=== PATIENT | male | born 1965 | race Caucasian/White ===

== ENCOUNTER 2016-05-20 05:35 | Inpatient (IN) | payer OTHER ==
[~2016-05-20] VITALS: Ht 182.9 cm; Wt 138.9 kg
[~2016-05-20 05:35] MED LIST: ATIVAN1 MG PO; BACTRIM,SEPT1 TABLET PO; CIPRO500 MG PO; CLINDAMYCIN HC300 MG PO; COLACE100 MG PO; CYMBALTA60 MG PO; DILAUDID2 MG PO; FENTANYL1 EAC1 TD; IRON325 M1 PO; KEFLEX500 MG PO; LEVAQUIN750 MG PO; LIDOCAINE20 MG/1 M5 PO; LYRICA100 MG PO; NAPROSYN500 MG PO; NORCO 7.5/321 TABLET PO; OXYCODONE HCL10 MG PO; OXYCODONE HCL15 MG PO; PEN-VEE K,VEET500 MG PO; PERCOCET 10/1 TABLET PO; PERCOCET 5/31 TABLET PO; PYRIDIUM200 MG PO; SOMA350 MG PO; TIZANIDINE HCL4 MG PO; ULTRAM50 MG PO; ZUBSOLV 8.6-2.1 EACH SL
[2016-05-20 06:03] VITALS: BP 133/87
[2016-05-20 11:12] VITALS: BP 104/79
[2016-05-20 11:30] VITALS: BP 130/84
[2016-05-20 15:45] VITALS: BP 139/87
[2016-05-20 19:45] VITALS: BP 150/94
[2016-05-21 03:24] VITALS: BP 160/90
[2016-05-21 05:49] LABS: MCV 87.1 FL (86-99)
[2016-05-21 06:10] LABS: ANION GAP 5 MEQ/L (2-14); CHLORIDE 101 MEQ/L (99-109); GFR ESTIMATE (CALCULATED) > 59 mL/min/; GLUCOSE 108 mg/dL (70-99); POTASSIUM 4.4 MEQ/L (3.7-5.4); SAMPLE HEMOLYSIS CHECK 0; SAMPLE ICTERIC CHECK 0; SAMPLE LIPEMIA CHECK 0; SODIUM 136 MEQ/L (136-147); UREA NITROGEN (BUN) 12 mg/dL (9-23)
[2016-05-21 08:27] VITALS: BP 170/50
[2016-05-21 12:25] VITALS: BP 140/70
[2016-05-21 16:43] VITALS: BP 150/90
[2016-05-21 23:24] VITALS: BP 137/85
[2016-05-22 06:22] LABS: HEMATOCRIT 39.5 % (38.0-50.0); MCV 87.2 FL (86-99)
[2016-05-22 08:14] VITALS: BP 140/95
[2016-05-22 08:19] VITALS: BP 131/80
[2016-05-22] MEDS ORDERED: BENADRYL25 MG PO (09:57)
[2016-05-22] MEDS ORDERED: OXYCODONE HCL5 MG PO (10:02)
[2016-05-22] MEDS ORDERED: METHOCARBAMOL750 MG PO (10:02)
[2016-05-22] MEDS ORDERED: XARELTO10 MG PO (10:02)
[2016-05-22] MEDS ORDERED: CELECOXIB200 MG PO (10:02)
[2016-05-22] MEDS ORDERED: OXYCONTIN10 MG PO (10:02)
== END 2016-05-22 14:44 | disposition home or self-care (01) | DRG 470 ==
LOC: 2SOUTH 05:35 → 3EAST 05:35 → 2SOUTH 08:21 → 3EAST 10:37
PROVIDERS: Orthopaedic Surgery; Physician Assistant
PROC: 0SRC0J9 Replacement of Right Knee Joint with Synthetic Substitute, Cemented, Open Approach (ICD-10-PCS; principal; 2016-05-20)
DX: M17.11 Unilateral primary osteoarthritis, right knee (principal); F11.20 Opioid dependence, uncomplicated; Z68.41 Body mass index [BMI] 40.0-44.9, adult; E66.9 Obesity, unspecified; F17.210 Nicotine dependence, cigarettes, uncomplicated; F41.0 Panic disorder [episodic paroxysmal anxiety]; B18.2 Chronic viral hepatitis C; M96.1 Postlaminectomy syndrome, not elsewhere classified; Z85.51 Personal history of malignant neoplasm of bladder; Z98.1 Arthrodesis status
CPT/HCPCS: 80048; 85014; 85018; C1713; J0131; J0690; J1170; J1885; J2250; J2274; J2795; J7050; L1820